=== PATIENT | female | born 1945 | race African-American/Black ===

== ENCOUNTER 2018-01-18 10:22 | Outpatient (CLI) | payer MEDICARE ==
[2018-01-18 11:24] LABS: Blood Urea Nitrogen 23 mg/dL (7-17)
--- NOTE | 2018-01-18 14:45 | Cat Scan Report ---
CT ABDOMEN PELVIS WITH AND WITHOUT CONTRAST: HISTORY: abdominal pain. COMPARISON: none. TECHNIQUE: Helical CT in 1.25mm intervals before and after IV contrast. Sagittal and coronal reconstructions. FINDINGS: Lung bases: Normal. Liver: Normal. Biliary system: Normal. Pancreas: Normal. Spleen: Normal. Kidneys/ureters/bladder: The kidneys are normal size, contour and position. No evidence for nephrolithiasis. No cystic disease or enhancing mass is identified. The ureters are normal course and caliber. Normal bladder. Adrenal glands: Normal. Aorta: Normal caliber. Intestines: Unremarkable given no oral contrast was administered. No obstruction or inflammatory changes. Appendix: Normal. Pelvic viscera: The uterus and adnexa are unremarkable. Ascites: None. Adenopathy: None. Musculoskeletal: Mild thoracolumbar spondylosis is noted. No fracture or suspicious bony lesion is appreciated. IMPRESSION: Unremarkable CT scan of the abdomen and pelvis with and without contrast. No clear explanation for hematuria.
== END 2018-01-18 10:23 | disposition home or self-care (01) ==
LOC: CT 10:22
PROVIDERS: ATTEND Obstetrics & Gynecology
DX: R31.9 Hematuria, unspecified (principal); M47.896 Other spondylosis, lumbar region
CPT/HCPCS: 36415; 74178; 82565; 84520; Q9967